=== PATIENT | female | born 1990 | race American Indian/Alaskan Native ===

== ENCOUNTER 2019-07-07 21:52 | Emergency (ER) | payer MEDICAID ==
[2019-07-07 21:56] VITALS: BP 112/72
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
[2019-07-07 22:47] LABS: Bilirubin,Urine NEG (Negative); Blood,Urine LG (Negative); Color,Urine Red (Yellow); Mucus,Urine 2+ /HPF; Urobilinogen,Urine < 2.0 mg/dL (<2.0)
[2019-07-07 22:49] LABS: RBC,Urine > 182.0 /HPF (0.0-6.0)
--- NOTE | 2019-07-08 00:04 | Ultrasound Report ---
ULTRASOUND OBSTETRIC INDICATION / CLINICAL INFORMATION: pain and bleeding with . Clinical Gestational Age (GA): 6.5 weeks.days TECHNIQUE: Transabdominal and Transvaginal. COMPARISON: None available. FINDINGS: GESTATIONAL SAC: No intrauterine gestational sac, yolk sac, or embryonic pole is identified. Small, hypoechoic, heterogeneous collection in the lower uterine segment endometrial canal. ADNEXA: No significant abnormality. FREE FLUID: None. ADDITIONAL FINDINGS: None. IMPRESSION: 1. No intrauterine visualized. 2. Small amount of hypoechoic heterogeneous fluid in the lower uterine segment could represent blood products. Signer Name: Marjorie Hardy MD Signed: 07/08/2019 12:00 AM Workstation Name: [id number]
[2019-07-08 00:32] LABS: Hematocrit 32.5 % (30.3-42.9); Hemoglobin 11.3 gm/dl (10.1-14.3); Mean Corpuscular HGB Conc 35 % (30-34); Mean Corpuscular Volume 82 fl (79-97); Platelet Count 353 K/mm3 (140-440); Red Blood Count 3.96 M/mm3 (3.65-5.03); Red Cell Distribution Width 16.3 % (13.2-15.2)
== END 2019-07-08 01:15 | disposition home or self-care (01) ==
LOC: ED 21:52
DX: O20.0 Threatened abortion (principal)
CPT/HCPCS: 36415; 76801; 76817; 81001; 84702; 85027; 86900; 86901